=== PATIENT | female | born 1960 | race African-American/Black ===

== ENCOUNTER 2021-06-05 11:38 | Outpatient (CLI) | payer OTHER ==
--- NOTE | 2021-06-05 14:09 | Mammography Report ---
DIGITAL SCREENING MAMMOGRAM WITH CAD, 06/05/2021 CLINICAL INFORMATION / INDICATION: Routine screening mammography. SCREENING MAMMO Z12.31 TECHNIQUE: Digital bilateral 2D mammography was obtained in the craniocaudal and mediolateral obliqu e projections. This examination was interpreted with the benefit of Computer-Aided Detection analysis . COMPARISON: None. FINDINGS: Breast Density: There are scattered areas of fibroglandular density. No dominant mass, suspicious calcifications, or architectural distortion in either breast. IMPRESSION: No mammographic evidence of malignancy. Follow up recommendation: Routine yearly BI-RADS Category 1: Negative. A "normal" or negative report should not discourage follow up or biopsy of a clinically significant f inding. A written summary of these findings will be mailed to the patient. The patient will be entered into a mammography reporting system which will generate a reminder letter for the patient's next appointmen t at the appropriate interval. The [employer] recommends yearly mammograms starting at age 40 and continuing as l nitesh as a woman is in good health. Breast MRI is recommended for women with an approximate 20-25% or greater lifetime risk of breast cancer, including women with a strong family history of breast or ova tip cancer or who have been treated for Hodgkin's disease. Signer Name: Brandyn Estrella MD Signed: 06/05/2021 2:05 PM Workstation Name: [id number]
== END 2021-06-05 11:39 | disposition home or self-care (01) ==
LOC: SPVWC 11:38
PROVIDERS: ATTEND Obstetrics & Gynecology
DX: Z12.31 Encounter for screening mammogram for malignant neoplasm of breast (principal); N64.89 Other specified disorders of breast
CPT/HCPCS: 77067

== ENCOUNTER 2022-06-11 12:40 | Outpatient (CLI) | payer OTHER ==
--- NOTE | 2022-06-12 11:20 | Mammography Report ---
DIGITAL SCREENING MAMMOGRAM WITH CAD, 06/11/2022 CLINICAL INFORMATION / INDICATION: Routine screening mammography. Z12.31 TECHNIQUE: Digital bilateral 2D mammography was obtained in the craniocaudal and mediolateral obliqu e projections. This examination was interpreted with the benefit of Computer-Aided Detection analysis . COMPARISON: 06/05/2021 FINDINGS: Breast Density: There are scattered areas of fibroglandular density. No dominant mass, suspicious calcifications, or architectural distortion in either breast. IMPRESSION: No mammographic evidence of malignancy. Follow up recommendation: Routine yearly screening mammogram. BI-RADS Category 1: NEGATIVE A "normal" or negative report should not discourage follow up or biopsy of a clinically significant f inding. A written summary of these findings will be mailed to the patient. The patient will be entered into a mammography reporting system which will generate a reminder letter for the patient's next appointmen t at the appropriate interval. The [employer] recommends yearly mammograms starting at age 40 and continuing as l nitesh as a woman is in good health. Breast MRI is recommended for women with an approximate 20-25% or greater lifetime risk of breast cancer, including women with a strong family history of breast or ova tip cancer or who have been treated for Hodgkin's disease. Signer Name: Benny Easley MD Signed: 06/12/2022 11:16 AM Workstation Name: [id number]
== END 2022-06-11 12:41 | disposition home or self-care (01) ==
LOC: SPVWC 12:40
PROVIDERS: ATTEND Obstetrics & Gynecology
DX: Z12.31 Encounter for screening mammogram for malignant neoplasm of breast (principal)
CPT/HCPCS: 77067